=== PATIENT | male | born 1930 | race Caucasian/White ===

== ENCOUNTER 2018-02-21 14:17 | Inpatient (IN) | payer MEDICARE ==
[2018-02-21] MEDS: MECLIZINE 25 MG TABLET PO ×2 (16:02→23:48)
[2018-02-21] MEDS: NS 500 ML IV ×2 (16:02→21:03)
[2018-02-21 16:23] LABS: BASO # 0.1 10^3/uL (0.0-0.2); BASO % 0.4 % (0.0-1.0); EOS # 0.2 10^3/uL (0.0-0.50); EOS % 1.2 % (0.0-3.0); HEMATOCRIT 45.9 % (42.0-52.0); HEMOGLOBIN 15.1 g/dl (13.5-17.5); IMMATURE GRANULOCYTE % 0.6 % (0-3.0); LYMPH # 1.3 10^3/uL (1.5-4.5); LYMPH % 9.2 % (24.0-44.0); MEAN CORPUSCULAR HGB CONC 32.9 g/dl (32.0-36.5); MEAN CORPUSCULAR VOLUME 91.1 fl (80.0-96.0); MONO # 0.6 10^3/uL (0.0-0.8); MONO % 4.5 % (0.0-5.0); NEUTROPHILS # 11.6 10^3/uL (1.8-7.7); NEUTROPHILS % 84.1 % (36.0-66.0); PLATELET COUNT, AUTOMATED 438 10^3/uL (150-450); RED BLOOD COUNT 5.04 10^6/uL (4.30-6.10); RED CELL DISTRIBUTION WIDTH 16.3 % (11.5-14.5); WHITE BLOOD COUNT 13.9 10^3/uL (4.0-10.0)
[2018-02-21 16:43] LABS: ALBUMIN 3.4 GM/DL (3.2-5.2); ALBUMIN/GLOBULIN RATIO 0.87 (1.00-1.93); ALKALINE PHOSPHATASE 71 U/L (45-117); ALT/SGPT 33 U/L (12-78); ANION GAP 9 MEQ/L (8-16); AST/SGOT 17 U/L (7-37); BILIRUBIN,DIRECT 0.1 MG/DL (0.0-0.2); BILIRUBIN,TOTAL 0.6 MG/DL (0.2-1.0); BLOOD UREA NITROGEN 27 MG/DL (7-18); CALCIUM LEVEL 8.9 MG/DL (8.8-10.2); CARBON DIOXIDE LEVEL 25 MEQ/L (21-32); CHLORIDE LEVEL 107 MEQ/L (98-107); CPK CREATINE PHOSPHOKINASE 96 U/L (39-308); CREATININE FOR GFR 1.18 MG/DL (0.70-1.30); GLOMERULAR FILTRATION RATE > 60.0 (>35); GLUCOSE, FASTING 137 MG/DL (70-100); POTASSIUM SERUM 4.3 MEQ/L (3.5-5.1); SODIUM LEVEL 141 MEQ/L (136-145); TOTAL PROTEIN 7.3 GM/DL (6.4-8.2); TROPONIN I < 0.02 NG/ML (< 0.10)
[2018-02-21 16:49] LABS: CK-MB VALUE MASS 1.8 NG/ML (<3.6); MB/CK RELATIVE INDEX 1.87 (< OR =4)
[2018-02-21] MEDS: LORazepam 2 MG/ML VIAL (J2060) IV (17:15)
[2018-02-21] MEDS ORDERED: ACETAMINOPHEN TAB 650MG DOSE (2X325MG) PO (18:30)
[2018-02-21] MEDS ORDERED: ONDANSETRON 4MG/2ML VIAL (J2405) IV (18:30)
[2018-02-21] MEDS ORDERED: ISOVUE-370 76% 100ML VIAL (Q9967) As Ordered (18:33)
[2018-02-21 20:23] LABS: ESTIMATED AVERAGE GLUCOSE 146 MG/DL (60-110); HEMOGLOBIN A1c 6.7 %
[2018-02-21 20:30] LABS: REASON FOR REVIEW WBC/LEUKEMIA/BLAST; SLIDE REVIEW Report; SOURCE PERIPHERAL SMEAR
[2018-02-21 20:43] LABS: FREE THYROXINE INDEX 2.1 % (1.4-3.8); T UPTAKE 34 % (33-40); THYROXINE (T4) 6.2 UG/DL (4.5-12.0)
[2018-02-21] MEDS: SENOKOT S TAB PO (21:02)
[2018-02-21] MEDS: hydrALAZINE INJ 20 MG/ML VIAL IV (21:03)
[2018-02-21] MEDS: HEPARIN SOD (PORCINE) 5000 UNITS/ML VIAL SC (21:06)
[2018-02-21] MEDS: LISINOPRIL 5 MG TAB PO (21:13)
[2018-02-21 22:01] LABS: CPK CREATINE PHOSPHOKINASE 96 U/L (39-308); TROPONIN I < 0.02 NG/ML (< 0.10)
[2018-02-21 22:06] LABS: MB/CK RELATIVE INDEX 2.08 (< OR =4)
[2018-02-22] MEDS: hydrALAZINE INJ 20 MG/ML VIAL IV ×4 (01:35→18:13)
[2018-02-22] MEDS: HEPARIN SOD (PORCINE) 5000 UNITS/ML VIAL SC ×3 (06:00→21:03)
[2018-02-22 07:19] LABS: HEMATOCRIT 44.3 % (42.0-52.0); HEMOGLOBIN 14.6 g/dl (13.5-17.5); MEAN CORPUSCULAR HEMOGLOBIN 29.7 pg (27.0-33.0); PLATELET COUNT, AUTOMATED 427 10^3/uL (150-450); RED BLOOD COUNT 4.92 10^6/uL (4.30-6.10); RED CELL DISTRIBUTION WIDTH 16.7 % (11.5-14.5); WHITE BLOOD COUNT 15.9 10^3/uL (4.0-10.0)
[2018-02-22 07:44] LABS: ALBUMIN 3.2 GM/DL (3.2-5.2); ALBUMIN/GLOBULIN RATIO 0.76 (1.00-1.93); ALKALINE PHOSPHATASE 66 U/L (45-117); ALT/SGPT 39 U/L (12-78); ANION GAP 11 MEQ/L (8-16); AST/SGOT 21 U/L (7-37); BILIRUBIN,TOTAL 0.6 MG/DL (0.2-1.0); BLOOD UREA NITROGEN 20 MG/DL (7-18); CALCIUM LEVEL 8.7 MG/DL (8.8-10.2); CARBON DIOXIDE LEVEL 22 MEQ/L (21-32); CHLORIDE LEVEL 108 MEQ/L (98-107); CK-MB VALUE MASS 1.5 NG/ML (<3.6); CPK CREATINE PHOSPHOKINASE 90 U/L (39-308); CREATININE FOR GFR 1.04 MG/DL (0.70-1.30); GLOMERULAR FILTRATION RATE > 60.0 (>35); GLUCOSE, FASTING 134 MG/DL (70-100); MAGNESIUM LEVEL 2.1 MG/DL (1.8-2.4); MB/CK RELATIVE INDEX 1.66 (< OR =4); SODIUM LEVEL 141 MEQ/L (136-145); TOTAL PROTEIN 7.4 GM/DL (6.4-8.2); TROPONIN I < 0.02 NG/ML (< 0.10)
[2018-02-22] MEDS: LISINOPRIL 5 MG TAB PO (09:00)
[2018-02-22] MEDS ORDERED: HYDROXYUREA 500 MG CAP PO (09:00)
[2018-02-22] MEDS: SENOKOT S TAB PO ×2 (09:00→21:00)
[2018-02-22] MEDS: ASPIRIN 81 MG ENTERIC TAB PO (09:00)
[2018-02-22] MEDS: HYDROXYUREA 500 MG CAP PO (12:00)
[2018-02-23] MEDS: hydrALAZINE INJ 20 MG/ML VIAL IV ×2 (00:17→06:16)
[2018-02-23] MEDS: HEPARIN SOD (PORCINE) 5000 UNITS/ML VIAL SC ×3 (06:00→22:00)
[2018-02-23] MEDS: SENOKOT S TAB PO ×2 (10:13→20:46)
[2018-02-23] MEDS: ASPIRIN 81 MG ENTERIC TAB PO (10:13)
[2018-02-23] MEDS: LISINOPRIL 5 MG TAB PO (10:13)
[2018-02-23] MEDS: HYDROXYUREA 500 MG CAP PO (12:00)
[2018-02-23] MEDS ORDERED: GLUCOSE 4 GM CHEW TABLET PO (14:00)
[2018-02-23] MEDS ORDERED: GLUCAGON FOR INJ 1 MG VIAL (J1610) SC (14:00)
[2018-02-23] MEDS ORDERED: DEXTROSE 50% 50 ML SYRINGE IV (14:00)
[2018-02-23] MEDS: HumaLOG INSULIN (NovoLOG) PER UNIT SC ×2 (17:30→20:46)
[2018-02-23 17:50] LABS: BEDSIDE GLUCOSE 156 MG/DL (83-110)
[2018-02-23 20:51] LABS: BEDSIDE GLUCOSE 156 MG/DL (83-110)
[2018-02-24] MEDS: HEPARIN SOD (PORCINE) 5000 UNITS/ML VIAL SC (05:18)
[2018-02-24] MEDS: HumaLOG INSULIN (NovoLOG) PER UNIT SC ×2 (07:30→12:00)
[2018-02-24 09:25] LABS: BEDSIDE GLUCOSE 159 MG/DL (83-110)
[2018-02-24] MEDS: SENOKOT S TAB PO (09:58)
[2018-02-24] MEDS: LISINOPRIL 5 MG TAB PO (09:58)
[2018-02-24] MEDS: ASPIRIN 81 MG ENTERIC TAB PO (09:59)
[2018-02-24] MEDS: HYDROXYUREA 500 MG CAP PO (12:00)
== END 2018-02-24 15:15 | disposition home or self-care (01) | DRG 149 ==
LOC: M PCU 02-22 14:25 → M ED 14:17 → M ED INP 18:00
DX: H81.13 Benign paroxysmal vertigo, bilateral (principal); I25.10 Atherosclerotic heart disease of native coronary artery without angina pectoris; I10 Essential (primary) hypertension; E11.9 Type 2 diabetes mellitus without complications; G47.33 Obstructive sleep apnea (adult) (pediatric); R55 Syncope and collapse; E66.9 Obesity, unspecified; I16.0 Hypertensive urgency; E02 Subclinical iodine-deficiency hypothyroidism; D72.829 Elevated white blood cell count, unspecified; I65.01 Occlusion and stenosis of right vertebral artery; D75.1 Secondary polycythemia; Z86.73 Personal history of transient ischemic attack (TIA), and cerebral infarction without residual deficits; Z95.0 Presence of cardiac pacemaker; Z79.82 Long term (current) use of aspirin; Z79.899 Other long term (current) drug therapy